=== PATIENT | male | born 1960 | race American Indian/Alaskan Native ===

== ENCOUNTER 2018-03-18 06:45 | Day surgery (SDC) | payer MEDICAID ==
[2018-03-18] MEDS ORDERED: ZOFRAN IV PRN (08:58)
[2018-03-18] MEDS ORDERED: DILAUDID IV PRN (08:58)
--- NOTE | 2018-03-18 08:59 | Anesthesia Day of Surgery ---
Anesthesia Day of Surgery - Day of Surgery Patient Examined: Yes Patient H&P Reviewed: Yes Patient is NPO: Yes
--- NOTE | 2018-03-18 08:59 | Anesthesia Consultation ---
Anesthesia Consult and Med Hx Date of service: 03/18/18 - Airway Anesthetic Teeth Evaluation: Poor ROM Head & Neck: Adequate Mental/Hyoid Distance: Adequate Mallampati Class: Class II Intubation Access Assessment: Probably Good - Pulmonary Exam CTA: Yes - Cardiac Exam Cardiac Exam: RRR - Pre-Operative Health Status ASA Pre-Surgery Classification: ASA2 Proposed Anesthetic Plan: General (GA with LMA ok)
[2018-03-18] MEDS ORDERED: VERSED IV NR (09:00)
[2018-03-18] MEDS ORDERED: LACTATED RINGERS 1,000 ML IV SCH (09:00)
[2018-03-18] MEDS ORDERED: NEURONTIN PO NR (09:00)
[2018-03-18 09:24] LABS: Basophils % (Auto) 0.8 % (0.0-1.8); Eosinophils # (Auto) 0.2 K/mm3 (0.0-0.4); Hematocrit 40.5 % (35.5-45.6); Hemoglobin 13.6 gm/dl (11.8-15.2); Lymphocytes # (Auto) 0.9 K/mm3 (1.2-5.4); Lymphocytes % (Auto) 20.5 % (13.4-35.0); Mean Corpuscular HGB Conc 34 % (32-34); Mean Corpuscular Hemoglobin 28 pg (28-32); Mean Corpuscular Volume 84 fl (84-94); Monocytes # (Auto) 0.5 K/mm3 (0.0-0.8); Monocytes % (Auto) 12.5 % (0.0-7.3); Platelet Count 288 K/mm3 (140-440); Red Blood Count 4.85 M/mm3 (3.65-5.03); Red Cell Distribution Width 13.2 % (13.2-15.2)
[2018-03-18] MEDS ORDERED: ANCEF/STERILE WATER 2 GM/20 ML IV NR (10:00)
[2018-03-18] MEDS ORDERED: DIPRIVAN 10 MG/ML IV ONE (10:18)
[2018-03-18] MEDS ORDERED: DILAUDID ONE ×2 (10:19→12:03)
[2018-03-18] MEDS ORDERED: XYLOCAINE CARDIAC IV ONE (10:19)
[2018-03-18] MEDS ORDERED: ZEMURON IV ONE (10:30)
[2018-03-18] MEDS ORDERED: QUELICIN ONE (10:30)
[2018-03-18] MEDS ORDERED: ZOFRAN ONE (10:30)
[2018-03-18] MEDS ORDERED: MARCAINE 0.25% INFILTRATI ONE ×2 (11:27→12:15)
[2018-03-18] MEDS ORDERED: ePHEDrine 50 MG/5 ML-0.9% NACL IV ONE (12:24)
[2018-03-18] MEDS ORDERED: NEO SYNEPHRINE ONE (12:33)
--- NOTE | 2018-03-18 13:43 | Post Anesthesia Evaluation ---
- Post Anesthesia Evaluation Patient Participated: Yes Airway Patent: Yes Stable Respiratory Function: Yes Nausea/Vomiting: No Temp > 96.8F: Yes Pain Manageable: Yes Adequeate Hydration: Yes Anesthesia Complications: No
[2018-03-18 15:17] VITALS: BP 120/82
== END 2018-03-18 15:32 | disposition home or self-care (01) ==
LOC: OR 06:45
PROVIDERS: ATTEND Specialist
DX: L91.0 Hypertrophic scar (principal); I10 Essential (primary) hypertension; E11.9 Type 2 diabetes mellitus without complications; Z98.890 Other specified postprocedural states
CPT/HCPCS: 11446; 13152; 36415; 82962; 84132; 85025; 88305; 88312; 88331; 88341; 88342; J0330; J0690; J1170; J2001; J2250; J2370; J2405; J2704; J7120

== ENCOUNTER 2018-05-13 11:07 | Day surgery (SDC) | payer MEDICAID ==
[~2018-05-13 11:07] MED LIST: DEMEROL IV PRN; DILAUDID IV PRN; LACTATED RINGERS 1,000 ML IV SCH; TORADOL IV PRN; VERSED IV NR; ZOFRAN IV PRN
[2018-05-13] MEDS ORDERED: DIPRIVAN 10 MG/ML IV ONE ×3 (12:18→14:15)
[2018-05-13] MEDS ORDERED: DILAUDID ONE (12:18)
[2018-05-13] MEDS ORDERED: XYLOCAINE MPF 2% ONE ×2 (12:18→14:14)
[2018-05-13] MEDS ORDERED: HumuLIN R SUB-Q ONE (12:19)
[2018-05-13] MEDS ORDERED: HumuLIN R IV ONE (12:33)
[2018-05-13] MEDS ORDERED: ANCEF/STERILE WATER 2 GM/20 ML IV NR (13:00)
--- NOTE | 2018-05-13 13:54 | Anesthesia Day of Surgery ---
Anesthesia Day of Surgery - Day of Surgery Patient Examined: Yes Patient H&P Reviewed: Yes Patient is NPO: Yes
--- NOTE | 2018-05-13 13:54 | Anesthesia Consultation ---
Anesthesia Consult and Med Hx Date of service: 05/13/18 - Airway Anesthetic Teeth Evaluation: Poor (multiple missing/chipped) ROM Head & Neck: Adequate Mental/Hyoid Distance: Adequate Mallampati Class: Class I Intubation Access Assessment: Probably Good (multiple raised lesions on face. Denies lesions in mouth. Trachea midline, appropriately mobile.) - Pulmonary Exam CTA: Yes - Cardiac Exam Cardiac Exam: RRR - Pre-Operative Health Status ASA Pre-Surgery Classification: ASA3 Proposed Anesthetic Plan: General - Pulmonary Hx Smoking: No Hx Respiratory Symptoms: No Home Oxygen Therapy: No - Cardiovascular System Hx Hypertension: Yes Hx Heart Attack/AMI: No - Central Nervous System Hx Seizures: No CVA: No Hx Psychiatric Problems: No - Gastrointestinal Hx Gastroesophageal Reflux Disease: No - Endocrine Hx Renal Disease: No Hx Liver Disease: No Hx Non-Insulin Dependent Diabetes: Yes Hx Thyroid Disease: No - Other Systems Hx Alcohol Use: No Hx Substance Use: No Hx Cancer: No - Additional Comments Anesthesia Medical History Comments: PMH sarcoidosis; no pulmonary symptoms.
[2018-05-13] MEDS ORDERED: SUBLIMAZE ONE (14:15)
[2018-05-13] MEDS ORDERED: XYLOCAINE MPF 0.5% INFILTRATI ONE (14:15)
[2018-05-13] MEDS ORDERED: MARCAINE-EPI 0.5%-1:200,000 INFILTRATI ONE ×2 (14:22→14:53)
[2018-05-13] MEDS ORDERED: NACL 0.9% IR ONE (15:08)
--- NOTE | 2018-05-13 15:36 | Operative Report ---
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 PROCEDURE: 1. Excision of benign neoplasm of central upper nose 4 cm. 2. Excision of benign neoplasm of left naris 3 cm. 3. Excision of benign neoplasm of left cheek 4 cm. 4. Complex closure of left cheek 4 cm. 5. Adjacent tissue transfer of closure of nose less than 10 square cm. SURGEON: Mario Bass MD STREET SWEEPER OPERATOR: Jama Davila. DESCRIPTION OF PROCEDURE: The patient was brought to the operating room and placed on the table in supine position. Following administration of general anesthesia and infiltration of local anesthesia, the face was prepped with Betadine solution, draped in usual sterile manner. A #15 blade scalpel was used to circumferentially excise the 3 benign neoplasms of the upper central nose, left naris, and left cheek sent to pathology as specimen. Hemostasis controlled using electrocautery. Skin edges were undermined followed by layered closure using interrupted and running subcuticular 3-0 Monocryl suture oversewn with 5-0 plain gut sutures. Prior to closure, the ends of the surgical incision had to be trimmed in order to prevent any dog ear deformity. For the nares extensive undermining was performed of both the upper central nose and the left naris. There was rotation and advancement of skin across the defect, which was closed without undue tension using interrupted and running subcuticular, 3-0 Monocryl sutures oversewn with 5-0 plain gut suture. Mastisol, Steri-Strips, and sterile dressings applied. The patient tolerated the procedure well and returned to recovery room in stable condition. JOB# [id number] FTW/NTS
[2018-05-13 17:48] VITALS: BP 128/76
== END 2018-05-13 17:10 | disposition home or self-care (01) ==
LOC: OR 11:07
PROVIDERS: ATTEND Plastic Surgery
DX: C76.0 Malignant neoplasm of head, face and neck (principal); L92.9 Granulomatous disorder of the skin and subcutaneous tissue, unspecified; E11.9 Type 2 diabetes mellitus without complications; I10 Essential (primary) hypertension; Z98.890 Other specified postprocedural states; Z79.84 Long term (current) use of oral hypoglycemic drugs
CPT/HCPCS: 14041; 21014; 36415; 82962; 84132; 88305; J0690; J1170; J2250; J2704; J7120; J1815; J3010